=== PATIENT | male | born 1970 | race Hispanic/Latino ===

== ENCOUNTER 2017-07-06 08:43 | Day surgery (SDC) | payer OTHER ==
[~2017-07-06] VITALS: Ht 175.3 cm; Wt 129.1 kg
[~2017-07-06 08:43] MED LIST: BACL10TA PO; CYCL10 PO; OXYC10TA48 PO; PROM25TA7 PO; SODIUM CHLORIDE 0.9% 1000ML 1,000 ML IV ONE
[2017-07-06 09:27] VITALS: BP 127/70
[2017-07-06] MEDS ORDERED: PROPOFOL 10 MG/ML 20ML VIAL IV ONE ×3 (10:40→10:52)
[2017-07-06] MEDS ORDERED: MIDAZOLAM HCL 1 MG/ML 2ML VIAL ONE (10:51)
[2017-07-06 11:01] VITALS: BP 94/55
== END 2017-07-06 11:40 ==
LOC: ENDO 08:43 → DAH 08:43 → ENDO 11:40
PROVIDERS: ATTEND Internal Medicine Gastroenterology
DX: K92.1 Melena (principal); Z86.010 Personal history of colon polyps; K57.30 Diverticulosis of large intestine without perforation or abscess without bleeding; M19.90 Unspecified osteoarthritis, unspecified site; Z98.84 Bariatric surgery status; Z98.890 Other specified postprocedural states; Z79.899 Other long term (current) drug therapy; F17.210 Nicotine dependence, cigarettes, uncomplicated; Z68.43 Body mass index [BMI] 50.0-59.9, adult
CPT/HCPCS: 45378; A4606; J2250; J2704 ×3; J7030

== ENCOUNTER 2019-01-16 12:08 | Emergency (ER) | payer OTHER ==
[~2019-01-16 12:08] MED LIST changes: -SODIUM CHLORIDE 0.9% 1000ML 1,000 ML IV ONE
== END 2019-01-16 12:35 | disposition home or self-care (01) ==
LOC: EDH 12:08
DX: G89.29 Other chronic pain (principal); M25.562 Pain in left knee; M19.90 Unspecified osteoarthritis, unspecified site; E11.9 Type 2 diabetes mellitus without complications; Z88.8 Allergy status to other drugs, medicaments and biological substances; Z91.018 Allergy to other foods
CPT/HCPCS: 29505

== ENCOUNTER 2022-02-09 14:57 | Emergency (ER) | payer OTHER ==
[~2022-02-09] VITALS: Ht 175.3 cm; Wt 125.2 kg
[~2022-02-09 14:57] MED LIST changes: -CYCL10 PO; +CYCL10TA16 PO
[2022-02-09 14:58] VITALS: BP 122/79
[2022-02-09] MEDS ORDERED: TETRACAINE HCL 0.5% 4 ML OPHTH SOLN ONE (15:07)
[2022-02-09] MEDS ORDERED: NA BORATE/BORIC AC/H2O/NACL 120 ML OPHTH IRRIG SOLN ONE (15:07)
[2022-02-09] MEDS ORDERED: FLUORESCEIN SODIUM 1 STRIP STRIP ONE (15:07)
[2022-02-09] MEDS ORDERED: TETANUS/DIPHTHERIA TOXOID [ADULT] 0.5 ML VIAL IM ONE (15:30)
[2022-02-09] MEDS ORDERED: GENTAMICIN SULFATE 0.3% 5ML DROPS OS SCH (15:30)
== END 2022-02-09 15:36 | disposition home or self-care (01) ==
LOC: EDH 14:57
DX: S05.02XA Injury of conjunctiva and corneal abrasion without foreign body, left eye, initial encounter (principal); Z79.899 Other long term (current) drug therapy; X58.XXXA Exposure to other specified factors, initial encounter; Y93.89 Activity, other specified; Y92.89 Other specified places as the place of occurrence of the external cause; Y99.8 Other external cause status
CPT/HCPCS: 90471; 90714

== ENCOUNTER 2024-11-14 20:54 | Emergency (ER) | payer MEDICARE, OTHER ==
[~2024-11-14] VITALS: Ht 175.3 cm; Wt 116.1 kg
[2024-11-14] MEDS: LIDOCAINE HCL 1% 20 ML VIAL INJ STA (21:13)
[2024-11-14] MEDS ORDERED: CEPH500B PO (22:18)
--- NOTE | 2024-11-14 22:19 | ERN ---
ED Note History of Present Illness Stated Complaint: C/O LACERATION TO LEFT LOWER LEG Chief Complaint: Laceration/Avulsion Time Seen by MD: 21:01 Time Seen by Midlevel: 21:05 Dictation: 53-year-old male with a history of diabetes coming in with complaints of laceration to the left lower leg. Patient states he was cutting the grass with a machete missed the grass and hit his leg. Patient states he is up-to-date with the vaccinations, last tetanus being two weeks ago. Allergies: Coded Allergies: emily (Unverified Allergy, Unknown, 01/16/19) rofecoxib (Unverified Allergy, Unknown, 07/03/17) Home Meds Reported Medications Baclofen (Baclofen) 10 Mg Tablet, 10 MG PO TID, TAB 07/03/17 Cyclobenzaprine HCl (Flexeril) 10 Mg Tab, 10 MG PO DAILY PRN for PAIN LEVEL 6 TO 10, TAB 07/03/17 Promethazine HCl (Promethazine HCl) 25 Mg Tablet, 25 MG PO DAILY PRN for NAUSEA, TAB 07/03/17 Oxycodone HCl (Oxycodone HCl) 10 Mg Tablet, 10 MG PO BID, TAB 07/03/17 Past Medical History Past Medical History: Arthritis, Diabetes-Type II Additional Past Medical Hx: GOUT,SCOLIOSIS Surgical History: Other Surgical History Other: BILATERAL KNEE, RT WRIST, HERNIA Family History: Negative Social History: Smokers, Lives with family Review of System Dictation Constitutional: Negative for fever,chills, and weight loss Eyes: Negative for injury, pain,redness, and discharge ENT: Negative for injury,pain or swelling Cardiovascular: Negative for chest pain, palpitations, and edema Respiratory: Negative for shortness of breath, cough, and wheezing, Abdomen/GI: Negative for abdominal pain, nausea, vomiting, diarrhea, and constipation Back: Negative for injury and pain : Negative for injury, bleeding and discharge, MS/Extremity: Negative for injury and deformity Skin: Negative for rash, and discoloration, laceration to the lower leg Neuro: Negative for headache, weakness, numbness, tingling, and seizure Psych: Negative for suicide ideation, homicidal ideation, and hallucinations Review of Systems: was completed Initial Vital Sign VS Vital Signs Date Time Temp Pulse Resp B/P (MAP) Pulse Ox O2 Delivery O2 Flow Rate FiO2 11/14/24 20:55 98.6 99 20 119/75 97 Room Air 11/14/24 21:19 0 21 Physical Exam Dictation General: awake, alert, NAD Head/Face: Normocephalic, atraumatic Eyes: PERRL, EOMI, vision at baseline ENT: oral cavity clear, TMs clear, no signs of infection Neck: Trachea midline, supple, no nuchal rigidity Cardiovascular: RRR, normal S1/S2, No MRGs, no JVD Respiratory: CTAB, no respiratory distress, No rales or wheezes Abdomen: Soft, non-tender, non-distended, normal bowel sounds, no guarding or rebound. Skin: Warm, dry, normal turgor, no rash, about 1-1/2 inch laceration noted to the left lower leg, lateral aspect of the ankle. Minimal bleeding MS/Extremity: Pulses equal, no cyanosis, neurovascular intact, FROM Neuro: COAx4, GCS 15, strength 5/5, CN 2-12 intact, normal cerebellar exam, normal gait, Psych: Normal behavior, mood, and affect normal ED Course ED Course Orders Procedure Category Date Status Time Ankle 2vws Lt RAD 11/14/24 Taken 21:01 Lidocaine Hcl 1% 20ml PHA 11/14/24 Complete Vial (Lidocaine Hc 21:01 Current Medications Medications (Trade) Dose Ordered Sig/Nils Route PRN Reason Start Time Stop Time Status Last Admin Dose Admin Lidocaine HCl (Lidocaine HCl 1% 20ml Vial) ONCE STAT INJ 11/14/24 21:01 11/14/24 21:04 DC 11/14/24 21:13 Vital Signs Date Time Temp Pulse Resp B/P (MAP) Pulse Ox O2 Delivery O2 Flow Rate FiO2 11/14/24 21:19 98.4 88 18 135/63 Room Air* 0 21 11/14/24 20:55 98.6 99 20 119/75 97 Room Air Medical Decision Making MDM MDM: 53-year-old male with a history of diabetes coming in with complaints of laceration to the left lower leg. Patient states he was cutting the grass with a machete missed the grass and hit his leg. Patient states he is up-to-date with the vaccinations, last tetanus being two weeks ago. See lack repair note for wound repair. Discussed with the patient on wound care and when to return back to the emergency room. We will prescribe patient antibiotics due to patient has a having a history of diabetes. Patient verbalized understanding, answered all questions. Differential diagnosis: Tendon involvement, laceration, arterial injury Rationale: Tests considered and ordered secondary to shared decision making include: Previous outside records reviewed: Old ER visits. Risk of complication and/or morbidity or mortality of patient management: None Medications-Per medication reconciliation Need for hospitalization: Patient does not meet criteria for hospitalization. Need for emergency major/minor surgery: No There are no social concerns with this patient. Prescription drug management Prescriptions will include symptomatic care Patient's prior external medical records from other ER visits were reviewed by me as indicated. Prior testing and results from previous visits were reviewed. Prior tests were taken into account with medical decision making and resource utilization, independent historian/historians were used to obtain complete medical history. I independently interpreted the test that were performed, results were reviewed by me and considered findings on radiology if ordered. Medical management and examination interpretation discussions were had by me with other qualified healthcare professionals as indicated for the patient's care. Procedure Wound Location: lower extremity Wound Length (cm): 2 Wound's Depth, Shape: superficial Wound Explored: clean Betadine Prep?: Yes Anesthesia: 1% Lidocaine Volume Anesthetic (ccs): 2 Wound Repaired With: sutures Suture Size/Type: 4:0 Number of Sutures: 5 DX & DISP Disposition: Discharge Departure Impression: Primary Impression: Leg laceration Condition: Stable Scripts Cephalexin Monohydrate (Keflex) 500 Mg Cap 500 MG PO BID for 7 Days, #14 CAP Prov: BACILIO AMBRIZ NP 11/14/24 Additional Instructions: Cleaned wound with soap and water. Return to the hospital or to your PCP for suture removal in 7-10 days. Return sooner to the ER if you develop any signs of infection to the incision area. Referrals: SAMANTHA ALARCON MD (PCP) Time of Disposition: 22:17 I have reviewed the case, and I agree with, Diagnosis and Plan BACILIO AMBRIZ NP Nov 14, 2024 22:19
--- NOTE | 2024-11-14 22:19 | HMCIMG ---
EXAM: CR right ankle, 2 View. CLINICAL HISTORY: injury with machete COMPARISON: None provided. FINDINGS: BONES: No acute fracture or aggressive appearing osseous lesion. JOINTS: The joint spaces appear within normal limits. No dislocation. No radiographic evidence of a joint effusion. SOFT TISSUES: The soft tissues are unremarkable. IMPRESSION: No acute osseous abnormality. /[place]
[2024-11-14 22:49] VITALS: BP 125/60; PULSE 75; RESP 18; TEMP 98.4; O2SAT 98
== END 2024-11-14 23:05 | disposition home or self-care (01) ==
LOC: EDH 20:54
DX: S81.812A Laceration without foreign body, left lower leg, initial encounter (principal); E11.9 Type 2 diabetes mellitus without complications; F17.200 Nicotine dependence, unspecified, uncomplicated; M19.90 Unspecified osteoarthritis, unspecified site; Z79.899 Other long term (current) drug therapy; W31.89XA Contact with other specified machinery, initial encounter; Y93.89 Activity, other specified; Y92.89 Other specified places as the place of occurrence of the external cause; Y99.8 Other external cause status
CPT/HCPCS: 12001; 73600; 99283